=== PATIENT | male | born 1980 | race Caucasian/White ===

== ENCOUNTER 2022-07-07 10:48 | Inpatient (IN) | payer BC ==
[2022-07-07] MEDS ORDERED: Iopamidol-370 76% 500 ML 1 ML ONE (11:18)
[2022-07-07 11:46] LABS: Hemoglobin 14.2 g/dL (14.0-18.0); Mean Corpuscular Hemoglobin 34.6 pg (27.0-31.0); Platelet Count 20 10x3/uL (130-400); RBC Distribution Width 15.6 % (11.5-14.5); Red Blood Cell (RBC) Count 4.09 mill/uL (4.70-6.10); White Blood Cell (WBC) Count 4.7 10x3/uL (4.8-10.8)
[2022-07-07 11:49] LABS: INR-International Normal Ratio 1.4; Prothrombin Time 17.4 sec (12.0-14.7)
[2022-07-07 11:50] LABS: PTT 40.9 sec (22.9-36.1)
[2022-07-07 12:03] LABS: ALT (SGPT) 93 U/L (8-55); AST (SGOT) 318 U/L (5-34); Albumin 2.9 g/dL (3.5-5.0); Alkaline Phosphatase 190 U/L (40-110); Anion Gap 17 mmol/L (10-20); BUN (Urea Nitrogen) 8 mg/dL (8.9-20.6); Calc. Creatinine Clearance 0 mL/min (70-130); Calcium 8.5 mg/dL (7.8-10.44); Carbon Dioxide 28 mmol/L (22-29); Chloride 82 mmol/L (98-107); Estimated GFR 121; Globulin 2.6 g/dL (2.4-3.5); Glucose 104 mg/dL (70-105); Lipase 92 U/L (8-78); Potassium 2.7 mmol/L (3.5-5.1); Protein, Total 5.5 g/dL (6.0-8.3); Sodium 124 mmol/L (136-145)
[2022-07-07 12:06] LABS: Band 13 % (5-11); Eosinophils 1 % (0-10); Lymphocytes 2 % (21-51); MDiff Complete? YES; Monocytes 13 % (0-10); Neutrophil 70 % (42-75); Platelet Morphology Comment Appears Decreased; Polychromasia SLIGHT = 2-3 cells (100X) (0-2/hpf); Reactive Lymphocytes 1 % (0-10); Reflex for Review?? YES; Target Cells MODERATE= 6-15 cells (100X) (0-1/hpf)
[2022-07-07 12:12] LABS: Bilirubin, Total 30.5 mg/dL (0.2-1.2)
[2022-07-07] MEDS ORDERED: Potassium Chloride 20 MEQ TAB ONE (14:38)
[2022-07-07] MEDS ORDERED: Acetaminophen 325 MG TAB PO PRN (16:34)
[2022-07-07] MEDS ORDERED: Potassium Chloride 20 MEQ TAB PO SCH (16:45)
[2022-07-07] MEDS ORDERED: NS 0.9% w/ 20 MEQ KCL 1,000 ML/1,000 ML BAG IV SCH (16:45)
[2022-07-07] MEDS ORDERED: Magnesium 2 GM/50 ML(in water) 2 GM in Premix Bag 1 BAG IVPB SCH (16:45)
[2022-07-07] MEDS ORDERED: Magnesium 2 GM/50 ML BAG (IN WATER) ONE (19:48)
[2022-07-07 23:44] LABS: SARS-CoV-2 NAA Rapid Test Not Detected (NotDetected)
[2022-07-08 06:43] LABS: Bilirubin, Total 27.3 mg/dL (0.2-1.2)
[2022-07-08 06:45] LABS: ALT (SGPT) 82 U/L (8-55); AST (SGOT) 272 U/L (5-34); Albumin 2.9 g/dL (3.5-5.0); Alkaline Phosphatase 171 U/L (40-110); Anion Gap 14 mmol/L (10-20); BUN (Urea Nitrogen) 7 mg/dL (8.9-20.6); Calc. Creatinine Clearance 0 mL/min (70-130); Calcium 8.3 mg/dL (7.8-10.44); Carbon Dioxide 29 mmol/L (22-29); Chloride 86 mmol/L (98-107); Estimated GFR 128; Globulin 2.7 g/dL (2.4-3.5); Glucose 90 mg/dL (70-105); Magnesium 2.3 mg/dL (1.6-2.6); Potassium 3.2 mmol/L (3.5-5.1); Protein, Total 5.6 g/dL (6.0-8.3); Sodium 126 mmol/L (136-145)
[2022-07-08 06:52] LABS: HBCM Index 0.07 S/CO (0-0.79); HBSAg Index 0.24 S/CO (0-0.99); Hep A IgM AB Non-Reactive (NonReactive); Hep A IgM S/CO 0.14 S/CO (0-0.79); Hep B Surf Ag Non-Reactive S/CO (NonReactive); Hep C IgG Ab Non-Reactive (NonReactive); Hep C Index 0.05 S/CO (0-0.79); Hepatitis B Core IgM Abs Non-Reactive (NonReactive)
[2022-07-08 06:54] LABS: Anisocytosis SLIGHT = 6-15 cells (100X) (0-5/hpf); Band 4 % (5-11); Eosinophils 3 % (0-10); Lymphocytes 4 % (21-51); MDiff Complete? YES; Mean Corpuscular HGB CONC 34.8 g/dL (32.0-36.0); Mean Corpuscular Hemoglobin 34.4 pg (27.0-31.0); Mean Platelet Volume 11.9 fL (7.4-10.4); Monocytes 12 % (0-10); Neutrophil 77 % (42-75); Nucleated RBC 1 % (0); Platelet Count 26 10x3/uL (130-400); Platelet Morphology Comment Appears Decreased; Polychromasia SLIGHT = 2-3 cells (100X) (0-2/hpf); RBC Distribution Width 15.8 % (11.5-14.5); Red Blood Cell (RBC) Count 4.06 mill/uL (4.70-6.10); Stomatocytes SLIGHT = 2-5 cells (100X) (0-1/hpf); White Blood Cell (WBC) Count 3.7 10x3/uL (4.8-10.8)
[2022-07-08] MEDS: Spironolactone 25 MG TAB PO SCH (12:11)
[2022-07-08] MEDS: prednisoLONE 10 MG ODT TAB PO SCH (12:15)
[2022-07-09 07:48] LABS: INR-International Normal Ratio 1.4; Prothrombin Time 17.8 sec (12.0-14.7)
[2022-07-09 07:50] LABS: Mean Corpuscular HGB CONC 33.2 g/dL (32.0-36.0); Mean Corpuscular Hemoglobin 33.3 pg (27.0-31.0); Mean Platelet Volume 10.4 fL (7.4-10.4); Platelet Count 40 10x3/uL (130-400); RBC Distribution Width 16.1 % (11.5-14.5)
[2022-07-09] MEDS: Spironolactone 25 MG TAB PO SCH (08:06)
[2022-07-09 08:07] LABS: Bilirubin, Total 27.8 mg/dL (0.2-1.2)
[2022-07-09 08:13] LABS: Alpha-Fetoprotein,Tumor Marker 2.9 ng/mL (0.89-8.78); Cancer Antigen - CA 125 708.7 U/mL (Less than 35)
[2022-07-09 08:33] LABS: ALT (SGPT) 79 U/L (8-55); AST (SGOT) 224 U/L (5-34); Acetaminophen Less than 10.0 mcg/mL (10.0-30.0); Albumin 2.4 g/dL (3.5-5.0); Alkaline Phosphatase 167 U/L (40-110); Anion Gap 12 mmol/L (10-20); BUN (Urea Nitrogen) 8 mg/dL (8.9-20.6); Calc. Creatinine Clearance 223 mL/min (70-130); Calcium 8.1 mg/dL (7.8-10.44); Carbon Dioxide 29 mmol/L (22-29); Chloride 93 mmol/L (98-107); Estimated GFR 127; Globulin 2.6 g/dL (2.4-3.5); Glucose 112 mg/dL (70-105); Iron 97 ug/dL (65-175); Iron Binding Capacity, Total 118 mcg/dL (261-462); Sodium 131 mmol/L (136-145)
[2022-07-09] MEDS ORDERED: prednisoLONE 10 MG ODT TAB PO SCH ×2 (09:00)
[2022-07-09] MEDS ORDERED: Potassium Chloride 20 MEQ TAB PO SCH (09:15)
[2022-07-09 11:54] LABS: Band 11 % (5-11); Eosinophils 1 % (0-10); Lymphocytes 4 % (21-51); MDiff Complete? YES; Monocytes 6 % (0-10); Myelocyte 1 % (0-0); Neutrophil 72 % (42-75); Nucleated RBC 1 % (0); Platelet Morphology Comment Appears Decreased; Polychromasia MODERATE = 3-4 cells (100X) (0-2/hpf); Reactive Lymphocytes 5 % (0-10); Target Cells SLIGHT = 2-5 cells (100X) (0-1/hpf)
[2022-07-09] MEDS: prednisoLONE 10 MG ODT TAB PO SCH (12:51)
[2022-07-09 13:31] LABS: ANA Symphony (Qualitative) Negative (Negative); ANA Symphony (Quantitative) 0.4 Ratio (< 0.7 Negative); EliA Vaculitis New Method **** NEW METHOD ****; Mitochondrial Ab 1.2 U/mL (<4 Negative)
[2022-07-10 07:29] LABS: ALT (SGPT) 90 U/L (8-55); AST (SGOT) 236 U/L (5-34); Albumin 2.6 g/dL (3.5-5.0); Alkaline Phosphatase 186 U/L (40-110); Anion Gap 12 mmol/L (10-20); BUN (Urea Nitrogen) 10 mg/dL (8.9-20.6); Bilirubin, Total Greater than 25.0 mg/dL (0.2-1.2); Calc. Creatinine Clearance 202 mL/min (70-130); Calcium 8.4 mg/dL (7.8-10.44); Carbon Dioxide 28 mmol/L (22-29); Chloride 98 mmol/L (98-107); Estimated GFR 124; Globulin 2.9 g/dL (2.4-3.5); Glucose 111 mg/dL (70-105); Potassium 3.6 mmol/L (3.5-5.1); Protein, Total 5.5 g/dL (6.0-8.3); Sodium 134 mmol/L (136-145)
[2022-07-10] MEDS: Spironolactone 25 MG TAB PO SCH (09:59)
[2022-07-10] MEDS: prednisoLONE 10 MG ODT TAB PO SCH (12:26)
[2022-07-10] MEDS: chlordiazePOXIDE HCl 5 MG CAP PO SCH ×2 (16:11→20:28)
[2022-07-11 07:00] LABS: INR-International Normal Ratio 1.3; Prothrombin Time 17.2 sec (12.0-14.7)
[2022-07-11 07:23] LABS: ALT (SGPT) 95 U/L (8-55); AST (SGOT) 223 U/L (5-34); Albumin 2.4 g/dL (3.5-5.0); Alkaline Phosphatase 177 U/L (40-110); Anion Gap 12 mmol/L (10-20); BUN (Urea Nitrogen) 9 mg/dL (8.9-20.6); Calc. Creatinine Clearance 212 mL/min (70-130); Calcium 8.2 mg/dL (7.8-10.44); Carbon Dioxide 25 mmol/L (22-29); Chloride 103 mmol/L (98-107); Estimated GFR 125; Globulin 2.7 g/dL (2.4-3.5); Glucose 110 mg/dL (70-105); Potassium 3.8 mmol/L (3.5-5.1); Protein, Total 5.1 g/dL (6.0-8.3); Sodium 136 mmol/L (136-145)
[2022-07-11 07:34] LABS: Bilirubin, Total 28.1 mg/dL (0.2-1.2)
[2022-07-11] MEDS: Ondansetron PF 4 MG/2 ML Vial IVP PRN (08:59)
[2022-07-11] MEDS: HYDROcodone/Acetaminophen 5/325 mg Tablet PO PRN ×4 (08:59→20:55)
[2022-07-11] MEDS: Spironolactone 25 MG TAB PO SCH (09:00)
[2022-07-11] MEDS: prednisoLONE 10 MG ODT TAB PO SCH (10:56)
[2022-07-11] MEDS: chlordiazePOXIDE HCl 5 MG CAP PO SCH ×3 (10:56→20:55)
[2022-07-11] MEDS: Morphine 2 MG/ML VIAL SLOW IVP PRN ×2 (14:50→22:48)
[2022-07-11] MEDS ORDERED: FLU VACC QS2022-23(6MOS UP)/PF 60 MCG/0.5 ML SYRINGE IM ONE (19:00)
[2022-07-12] MEDS: HYDROcodone/Acetaminophen 5/325 mg Tablet PO PRN ×2 (01:50→15:27)
[2022-07-12] MEDS ORDERED: diphenhydrAMINE 25 MG CAP PO SCH (02:15)
[2022-07-12] MEDS: Morphine 2 MG/ML VIAL SLOW IVP PRN ×4 (02:26→20:23)
[2022-07-12 06:57] LABS: Hemoglobin 14.8 g/dL (14.0-18.0); Mean Corpuscular HGB CONC 35.5 g/dL (32.0-36.0); Mean Corpuscular Hemoglobin 37.1 pg (27.0-31.0); Mean Platelet Volume 10.4 fL (7.4-10.4); Platelet Count 86 10x3/uL (130-400); Red Blood Cell (RBC) Count 3.99 mill/uL (4.70-6.10); White Blood Cell (WBC) Count 4.3 10x3/uL (4.8-10.8)
[2022-07-12 07:14] LABS: Anion Gap 12 mmol/L (10-20); BUN (Urea Nitrogen) 9 mg/dL (8.9-20.6); Calc. Creatinine Clearance 227 mL/min (70-130); Calcium 8.2 mg/dL (7.8-10.44); Carbon Dioxide 23 mmol/L (22-29); Chloride 102 mmol/L (98-107); Estimated GFR 128; Glucose 111 mg/dL (70-105); Potassium 3.7 mmol/L (3.5-5.1); Sodium 133 mmol/L (136-145)
[2022-07-12 07:22] LABS: ALT (SGPT) 111 U/L (8-55); AST (SGOT) 229 U/L (5-34); Albumin 2.8 g/dL (3.5-5.0); Alkaline Phosphatase 207 U/L (40-110); Bilirubin, Direct Greater than 10.0 mg/dL (0.1-0.3); Bilirubin, Total Greater than 25.0 mg/dL (0.2-1.2); Protein, Total 5.7 g/dL (6.0-8.3)
[2022-07-12 07:54] LABS: Band 11 % (5-11); Eosinophils 1 % (0-10); Lymphocytes 2 % (21-51); MDiff Complete? YES; Macrocytosis SLIGHT = 6-15 cells (100X) (0-5/hpf); Monocytes 11 % (0-10); Neutrophil 75 % (42-75); Platelet Morphology Comment Appears Decreased; Polychromasia SLIGHT = 2-3 cells (100X) (0-2/hpf); Target Cells SLIGHT = 2-5 cells (100X) (0-1/hpf)
[2022-07-12] MEDS: Spironolactone 25 MG TAB PO SCH (09:01)
[2022-07-12] MEDS: chlordiazePOXIDE HCl 5 MG CAP PO SCH ×3 (09:01→20:33)
[2022-07-12] MEDS: prednisoLONE 10 MG ODT TAB PO SCH (12:09)
[2022-07-13] MEDS: Morphine 2 MG/ML VIAL SLOW IVP PRN ×5 (00:17→20:19)
[2022-07-13] MEDS: HYDROcodone/Acetaminophen 5/325 mg Tablet PO PRN ×2 (02:46→08:25)
[2022-07-13 06:55] LABS: #Lymphocytes 0.5 thou/uL (1.20-3.40); #Monocytes 0.8 thou/uL (0.11-0.59); #Neutrophils 4.2 thou/uL (1.40-6.50); %Eosinophils 0.5 % (0.0-10.0); %Lymphocytes 9.1 % (21.0-51.0); %Monocytes 14.8 % (0.0-10.0); %Neutrophils 75.7 % (42.0-75.0); Hemoglobin 14.5 g/dL (14.0-18.0); Mean Corpuscular HGB CONC 32.5 g/dL (32.0-36.0); Mean Corpuscular Hemoglobin 33.8 pg (27.0-31.0); Platelet Count 106 10x3/uL (130-400); RBC Distribution Width 18.4 % (11.5-14.5); White Blood Cell (WBC) Count 5.5 10x3/uL (4.8-10.8)
[2022-07-13 07:10] LABS: Anion Gap 11 mmol/L (10-20); BUN (Urea Nitrogen) 9 mg/dL (8.9-20.6); Calc. Creatinine Clearance 202 mL/min (70-130); Calcium 8.3 mg/dL (7.8-10.44); Carbon Dioxide 26 mmol/L (22-29); Chloride 101 mmol/L (98-107); Estimated GFR 124; Glucose 111 mg/dL (70-105); Potassium 4.1 mmol/L (3.5-5.1); Sodium 134 mmol/L (136-145)
[2022-07-13 07:22] LABS: Bilirubin, Total 32.4 mg/dL (0.2-1.2)
[2022-07-13 07:38] LABS: ALT (SGPT) 133 U/L (8-55); AST (SGOT) 240 U/L (5-34); Albumin 2.7 g/dL (3.5-5.0); Alkaline Phosphatase 205 U/L (40-110); Bilirubin, Direct Greater than 10.0 mg/dL (0.1-0.3); Protein, Total 5.8 g/dL (6.0-8.3)
[2022-07-13] MEDS: Spironolactone 25 MG TAB PO SCH (08:25)
[2022-07-13] MEDS: chlordiazePOXIDE HCl 5 MG CAP PO SCH ×3 (08:27→20:18)
[2022-07-13] MEDS: prednisoLONE 10 MG ODT TAB PO SCH (12:30)
[2022-07-14] MEDS: Morphine 2 MG/ML VIAL SLOW IVP PRN ×4 (00:41→20:59)
[2022-07-14] MEDS: HYDROcodone/Acetaminophen 5/325 mg Tablet PO PRN ×3 (03:31→23:34)
[2022-07-14 06:44] LABS: INR-International Normal Ratio 1.3; Prothrombin Time 16.8 sec (12.0-14.7)
[2022-07-14 06:48] LABS: Anion Gap 12 mmol/L (10-20); BUN (Urea Nitrogen) 11 mg/dL (8.9-20.6); Calc. Creatinine Clearance 215 mL/min (70-130); Calcium 8.2 mg/dL (7.8-10.44); Carbon Dioxide 25 mmol/L (22-29); Chloride 102 mmol/L (98-107); Estimated GFR 126; Glucose 122 mg/dL (70-105); Potassium 4.2 mmol/L (3.5-5.1); Sodium 135 mmol/L (136-145)
[2022-07-14 06:52] LABS: #Lymphocytes 0.4 thou/uL (1.20-3.40); #Monocytes 0.8 thou/uL (0.11-0.59); #Neutrophils 4.7 thou/uL (1.40-6.50); %Basophils 0.2 % (0.0-1.0); %Eosinophils 0.7 % (0.0-10.0); %Monocytes 13.2 % (0.0-10.0); %Neutrophils 78.8 % (42.0-75.0); Hemoglobin 14.3 g/dL (14.0-18.0); Mean Corpuscular HGB CONC 32.8 g/dL (32.0-36.0); Mean Corpuscular Hemoglobin 34.2 pg (27.0-31.0); Mean Platelet Volume 10.5 fL (7.4-10.4); Platelet Count 102 10x3/uL (130-400); RBC Distribution Width 18.6 % (11.5-14.5); Red Blood Cell (RBC) Count 4.19 mill/uL (4.70-6.10)
[2022-07-14 07:01] LABS: ALT (SGPT) 133 U/L (8-55); AST (SGOT) 215 U/L (5-34); Albumin 2.9 g/dL (3.5-5.0); Alkaline Phosphatase 206 U/L (40-110); Bilirubin, Direct Greater than 10.0 mg/dL (0.1-0.3); Protein, Total 5.7 g/dL (6.0-8.3)
[2022-07-14 07:09] LABS: Bilirubin, Total 29.5 mg/dL (0.2-1.2)
[2022-07-14] MEDS ORDERED: WATER IVPB SCH (09:00)
[2022-07-14] MEDS ORDERED: ACETYLCYSTEINE IVPB SCH (09:00)
[2022-07-14] MEDS ORDERED: DEXTROSE 5% IVPB SCH (09:00)
[2022-07-14] MEDS: chlordiazePOXIDE HCl 5 MG CAP PO SCH ×3 (09:29→20:59)
[2022-07-14] MEDS: Spironolactone 25 MG TAB PO SCH (09:29)
[2022-07-14] MEDS: prednisoLONE 10 MG ODT TAB PO SCH (12:14)
[2022-07-15] MEDS: Morphine 2 MG/ML VIAL SLOW IVP PRN ×4 (01:38→20:09)
[2022-07-15 06:34] LABS: Hemoglobin 14.3 g/dL (14.0-18.0); Mean Corpuscular HGB CONC 31.8 g/dL (32.0-36.0); Mean Corpuscular Hemoglobin 33.4 pg (27.0-31.0); Mean Platelet Volume 11.1 fL (7.4-10.4); Platelet Count 106 10x3/uL (130-400); RBC Distribution Width 18.8 % (11.5-14.5); Red Blood Cell (RBC) Count 4.28 mill/uL (4.70-6.10); White Blood Cell (WBC) Count 5.9 10x3/uL (4.8-10.8)
[2022-07-15 06:42] LABS: Anion Gap 12 mmol/L (10-20); BUN (Urea Nitrogen) 10 mg/dL (8.9-20.6); Calc. Creatinine Clearance 219 mL/min (70-130); Calcium 8.1 mg/dL (7.8-10.44); Carbon Dioxide 25 mmol/L (22-29); Chloride 102 mmol/L (98-107); Estimated GFR 127; Glucose 130 mg/dL (70-105); Potassium 3.7 mmol/L (3.5-5.1); Sodium 135 mmol/L (136-145)
[2022-07-15 06:46] LABS: ALT (SGPT) 140 U/L (8-55); AST (SGOT) 208 U/L (5-34); Albumin 2.6 g/dL (3.5-5.0); Alkaline Phosphatase 223 U/L (40-110); Protein, Total 5.6 g/dL (6.0-8.3)
[2022-07-15 07:00] LABS: Band 11 % (5-11); Lymphocytes 5 % (21-51); MDiff Complete? YES; Macrocytosis SLIGHT = 6-15 cells (100X) (0-5/hpf); Monocytes 12 % (0-10); Neutrophil 72 % (42-75); Platelet Morphology Comment Appears Decreased; Target Cells SLIGHT = 2-5 cells (100X) (0-1/hpf)
[2022-07-15 07:14] LABS: Bilirubin, Direct 15.6 mg/dL (0.1-0.3)
[2022-07-15] MEDS: Spironolactone 25 MG TAB PO SCH (10:07)
[2022-07-15] MEDS: prednisoLONE 10 MG ODT TAB PO SCH (10:07)
[2022-07-15] MEDS: chlordiazePOXIDE HCl 5 MG CAP PO SCH ×3 (10:07→20:18)
[2022-07-15] MEDS: HYDROcodone/Acetaminophen 5/325 mg Tablet PO PRN (10:11)
[2022-07-16 08:37] LABS: Anion Gap 13 mmol/L (10-20); BUN (Urea Nitrogen) 9 mg/dL (8.9-20.6); Calc. Creatinine Clearance 204 mL/min (70-130); Calcium 7.7 mg/dL (7.8-10.44); Carbon Dioxide 24 mmol/L (22-29); Chloride 102 mmol/L (98-107); Estimated GFR 124; Glucose 135 mg/dL (70-105); Potassium 3.6 mmol/L (3.5-5.1); Sodium 135 mmol/L (136-145)
[2022-07-16 08:38] LABS: ALT (SGPT) 128 U/L (8-55); AST (SGOT) 168 U/L (5-34); Albumin 2.4 g/dL (3.5-5.0); Alkaline Phosphatase 163 U/L (40-110); Bilirubin, Total 19.1 mg/dL (0.2-1.2); Protein, Total 4.9 g/dL (6.0-8.3)
[2022-07-16 08:52] LABS: Hemoglobin 13.2 g/dL (14.0-18.0); Mean Corpuscular HGB CONC 33.4 g/dL (32.0-36.0); Mean Platelet Volume 11.2 fL (7.4-10.4); Platelet Count 83 10x3/uL (130-400); RBC Distribution Width 18.5 % (11.5-14.5); Red Blood Cell (RBC) Count 3.76 mill/uL (4.70-6.10); White Blood Cell (WBC) Count 7.4 10x3/uL (4.8-10.8)
[2022-07-16] MEDS: Furosemide 20 MG TAB PO SCH (08:59)
[2022-07-16] MEDS: Spironolactone 25 MG TAB PO SCH (08:59)
[2022-07-16] MEDS: chlordiazePOXIDE HCl 5 MG CAP PO SCH ×3 (08:59→21:46)
[2022-07-16] MEDS: Morphine 2 MG/ML VIAL SLOW IVP PRN (09:06)
[2022-07-16 09:10] LABS: Bilirubin, Direct 8.9 mg/dL (0.1-0.3)
[2022-07-16] MEDS ORDERED: Naproxen 500 MG TAB PO SCH (09:30)
[2022-07-16] MEDS: cefTRIAXone\\ROCEPHIN 1 GM in Sodium Chloride 0.9% 100 ML IVPB SCH (10:13)
[2022-07-16] MEDS: prednisoLONE 10 MG ODT TAB PO SCH (11:27)
[2022-07-16 11:42] LABS: Band 17 % (5-11); Lymphocytes 9 % (21-51); MDiff Complete? YES; Monocytes 9 % (0-10); Neutrophil 62 % (42-75); Platelet Morphology Comment Appears Decreased; Polychromasia SLIGHT = 2-3 cells (100X) (0-2/hpf); Reactive Lymphocytes 2 % (0-10); Target Cells SLIGHT = 2-5 cells (100X) (0-1/hpf)
[2022-07-16] MEDS: HYDROcodone/Acetaminophen 5/325 mg Tablet PO PRN ×2 (15:27→21:46)
[2022-07-17] MEDS: Dicyclomine 10 MG CAP PO PRN ×3 (05:29→21:30)
[2022-07-17] MEDS: cefTRIAXone\\ROCEPHIN 1 GM in Sodium Chloride 0.9% 100 ML IVPB SCH (09:24)
[2022-07-17] MEDS: chlordiazePOXIDE HCl 5 MG CAP PO SCH (09:25)
[2022-07-17] MEDS: Furosemide 20 MG TAB PO SCH (09:26)
[2022-07-17] MEDS: Spironolactone 25 MG TAB PO SCH (09:26)
[2022-07-17 10:28] LABS: ALT (SGPT) 149 U/L (8-55); AST (SGOT) 172 U/L (5-34); Albumin 2.3 g/dL (3.5-5.0); Alkaline Phosphatase 184 U/L (40-110); Anion Gap 12 mmol/L (10-20); BUN (Urea Nitrogen) 11 mg/dL (8.9-20.6); Bilirubin, Total 19.8 mg/dL (0.2-1.2); Calc. Creatinine Clearance 217 mL/min (70-130); Calcium 7.9 mg/dL (7.8-10.44); Carbon Dioxide 25 mmol/L (22-29); Chloride 102 mmol/L (98-107); Estimated GFR 126; Glucose 138 mg/dL (70-105); Potassium 3.3 mmol/L (3.5-5.1); Protein, Total 5.3 g/dL (6.0-8.3); Sodium 136 mmol/L (136-145)
[2022-07-17] MEDS: prednisoLONE 10 MG ODT TAB PO SCH (11:42)
[2022-07-17] MEDS ORDERED: Simethicone Chewable 80 MG TAB PO PRN (19:30)
[2022-07-18 07:40] LABS: ALT (SGPT) 167 U/L (8-55); AST (SGOT) 183 U/L (5-34); Albumin 2.7 g/dL (3.5-5.0); Alkaline Phosphatase 188 U/L (40-110); Anion Gap 13 mmol/L (10-20); BUN (Urea Nitrogen) 9 mg/dL (8.9-20.6); Bilirubin, Total 17.7 mg/dL (0.2-1.2); Calc. Creatinine Clearance 210 mL/min (70-130); Calcium 8.4 mg/dL (7.8-10.44); Carbon Dioxide 26 mmol/L (22-29); Chloride 103 mmol/L (98-107); Estimated GFR 125; Globulin 3.2 g/dL (2.4-3.5); Glucose 98 mg/dL (70-105); Potassium 3.6 mmol/L (3.5-5.1); Protein, Total 5.9 g/dL (6.0-8.3); Sodium 138 mmol/L (136-145)
[2022-07-18] MEDS: Dicyclomine 10 MG CAP PO PRN (09:10)
[2022-07-18] MEDS: Rifaximin 550 MG TAB PO SCH ×2 (09:11→20:13)
[2022-07-18] MEDS: Furosemide 20 MG TAB PO SCH (09:11)
[2022-07-18] MEDS: Spironolactone 25 MG TAB PO SCH (09:11)
[2022-07-18] MEDS: cefTRIAXone\\ROCEPHIN 1 GM in Sodium Chloride 0.9% 100 ML IVPB SCH (09:11)
[2022-07-18] MEDS: Nadolol 40 MG TAB PO SCH (09:13)
[2022-07-18] MEDS: prednisoLONE 10 MG ODT TAB PO SCH (12:25)
[2022-07-18 17:01] VITALS: BMI 29.3
[2022-07-19 06:21] LABS: ALT (SGPT) 170 U/L (8-55); AST (SGOT) 182 U/L (5-34); Albumin 2.3 g/dL (3.5-5.0); Alkaline Phosphatase 210 U/L (40-110); Anion Gap 10 mmol/L (10-20); BUN (Urea Nitrogen) 10 mg/dL (8.9-20.6); Bilirubin, Total 13.9 mg/dL (0.2-1.2); Calc. Creatinine Clearance 233 mL/min (70-130); Calcium 8.1 mg/dL (7.8-10.44); Carbon Dioxide 26 mmol/L (22-29); Chloride 104 mmol/L (98-107); Estimated GFR 129; Glucose 120 mg/dL (70-105); Potassium 3.3 mmol/L (3.5-5.1); Protein, Total 5.3 g/dL (6.0-8.3); Sodium 137 mmol/L (136-145)
[2022-07-19] MEDS: Spironolactone 25 MG TAB PO SCH (08:56)
[2022-07-19] MEDS: Nadolol 40 MG TAB PO SCH (08:56)
[2022-07-19] MEDS: Rifaximin 550 MG TAB PO SCH ×2 (08:56→21:07)
[2022-07-19] MEDS: Furosemide 20 MG TAB PO SCH (08:56)
[2022-07-19] MEDS: cefTRIAXone\\ROCEPHIN 1 GM in Sodium Chloride 0.9% 100 ML IVPB SCH (08:57)
[2022-07-19] MEDS: prednisoLONE 10 MG ODT TAB PO SCH (11:56)
[2022-07-19] MEDS ORDERED: Furosemide 40 MG/4 ML VIAL SLOW IVP SCH (16:00)
[2022-07-19] MEDS ORDERED: Albumin 25% 25 GM/100 ML BOT IVPB SCH (16:15)
[2022-07-19] MEDS ORDERED: Potassium Chloride 20 MEQ TAB PO SCH (16:30)
[2022-07-19] MEDS: Albumin 25% 25 GM/100 ML BOT IVPB SCH ×2 (17:56→23:43)
[2022-07-19] MEDS: Furosemide 20 MG/2 ML VIAL SLOW IVP SCH (21:07)
[2022-07-20] MEDS: Furosemide 20 MG/2 ML VIAL SLOW IVP SCH ×4 (03:18→21:47)
[2022-07-20] MEDS: Albumin 25% 25 GM/100 ML BOT IVPB SCH ×3 (05:15→23:45)
[2022-07-20 06:45] LABS: #Eosinphils 0.1 thou/uL (0.0-0.7); #Lymphocytes 0.7 thou/uL (1.20-3.40); #Monocytes 0.8 thou/uL (0.11-0.59); #Neutrophils 5.1 thou/uL (1.40-6.50); %Basophils 0.6 % (0.0-1.0); %Eosinophils 1.1 % (0.0-10.0); %Lymphocytes 10.8 % (21.0-51.0); %Monocytes 11.8 % (0.0-10.0); %Neutrophils 75.8 % (42.0-75.0); Hemoglobin 12.4 g/dL (14.0-18.0); Mean Corpuscular HGB CONC 33.8 g/dL (32.0-36.0); Mean Corpuscular Hemoglobin 36.2 pg (27.0-31.0); Mean Platelet Volume 10.7 fL (7.4-10.4); Platelet Count 92 10x3/uL (130-400); RBC Distribution Width 18.1 % (11.5-14.5); Red Blood Cell (RBC) Count 3.42 mill/uL (4.70-6.10); White Blood Cell (WBC) Count 6.7 10x3/uL (4.8-10.8)
[2022-07-20 07:00] LABS: ALT (SGPT) 160 U/L (8-55); AST (SGOT) 167 U/L (5-34); Albumin 3.2 g/dL (3.5-5.0); Alkaline Phosphatase 156 U/L (40-110); Anion Gap 13 mmol/L (10-20); BUN (Urea Nitrogen) 10 mg/dL (8.9-20.6); Bilirubin, Total 13.1 mg/dL (0.2-1.2); Calc. Creatinine Clearance 225 mL/min (70-130); Calcium 8.2 mg/dL (7.8-10.44); Carbon Dioxide 26 mmol/L (22-29); Chloride 101 mmol/L (98-107); Estimated GFR 127; Globulin 2.5 g/dL (2.4-3.5); Glucose 102 mg/dL (70-105); Protein, Total 5.7 g/dL (6.0-8.3); Sodium 137 mmol/L (136-145)
[2022-07-20] MEDS ORDERED: Potassium Chloride 20 MEQ TAB PO SCH (08:00)
[2022-07-20] MEDS: Rifaximin 550 MG TAB PO SCH ×2 (08:39→21:47)
[2022-07-20] MEDS: Spironolactone 25 MG TAB PO SCH (08:40)
[2022-07-20] MEDS: cefTRIAXone\\ROCEPHIN 1 GM in Sodium Chloride 0.9% 100 ML IVPB SCH (08:40)
[2022-07-20] MEDS: Nadolol 40 MG TAB PO SCH (08:40)
[2022-07-20] MEDS: prednisoLONE 10 MG ODT TAB PO SCH (11:20)
[2022-07-20] MEDS: Potassium Chloride 20 MEQ TAB PO SCH (21:47)
[2022-07-21] MEDS: Furosemide 20 MG/2 ML VIAL SLOW IVP SCH ×4 (04:58→21:00)
[2022-07-21] MEDS: Albumin 25% 25 GM/100 ML BOT IVPB SCH ×3 (05:21→17:14)
[2022-07-21 07:14] LABS: ALT (SGPT) 159 U/L (8-55); AST (SGOT) 170 U/L (5-34); Albumin 3.2 g/dL (3.5-5.0); Alkaline Phosphatase 154 U/L (40-110); Anion Gap 15 mmol/L (10-20); BUN (Urea Nitrogen) 11 mg/dL (8.9-20.6); Bilirubin, Total 12.4 mg/dL (0.2-1.2); Calc. Creatinine Clearance 210 mL/min (70-130); Carbon Dioxide 25 mmol/L (22-29); Chloride 103 mmol/L (98-107); Estimated GFR 125; Globulin 2.7 g/dL (2.4-3.5); Glucose 112 mg/dL (70-105); Potassium 3.7 mmol/L (3.5-5.1); Protein, Total 5.9 g/dL (6.0-8.3); Sodium 139 mmol/L (136-145)
[2022-07-21] MEDS: Nadolol 40 MG TAB PO SCH (09:06)
[2022-07-21] MEDS: Potassium Chloride 20 MEQ TAB PO SCH ×2 (09:06→21:00)
[2022-07-21] MEDS: Spironolactone 25 MG TAB PO SCH (09:06)
[2022-07-21] MEDS: Rifaximin 550 MG TAB PO SCH ×2 (09:06→21:00)
[2022-07-21] MEDS: cefTRIAXone\\ROCEPHIN 1 GM in Sodium Chloride 0.9% 100 ML IVPB SCH (10:13)
[2022-07-21] MEDS: prednisoLONE 10 MG ODT TAB PO SCH (11:13)
[2022-07-22] MEDS: Furosemide 20 MG/2 ML VIAL SLOW IVP SCH ×4 (04:02→21:07)
[2022-07-22] MEDS: Nadolol 40 MG TAB PO SCH (06:01)
[2022-07-22] MEDS: Ondansetron PF 4 MG/2 ML Vial IVP PRN (06:02)
[2022-07-22] MEDS ORDERED: PROPOFOL 200 MG/20 ML VIAL ONE (11:11)
[2022-07-22] MEDS: Rifaximin 550 MG TAB PO SCH ×2 (12:11→21:07)
[2022-07-22] MEDS: Spironolactone 25 MG TAB PO SCH (12:11)
[2022-07-22] MEDS: Potassium Chloride 20 MEQ TAB PO SCH ×2 (12:11→21:07)
[2022-07-22] MEDS: cefTRIAXone\\ROCEPHIN 1 GM in Sodium Chloride 0.9% 100 ML IVPB SCH (12:12)
[2022-07-22] MEDS: prednisoLONE 10 MG ODT TAB PO SCH (12:12)
[2022-07-23] MEDS: Furosemide 20 MG/2 ML VIAL SLOW IVP SCH ×3 (04:42→16:06)
[2022-07-23] MEDS: Rifaximin 550 MG TAB PO SCH (08:43)
[2022-07-23] MEDS: Spironolactone 25 MG TAB PO SCH (08:43)
[2022-07-23] MEDS: Furosemide 20 MG TAB PO SCH (08:43)
[2022-07-23] MEDS: Potassium Chloride 20 MEQ TAB PO SCH (08:43)
[2022-07-23] MEDS: cefTRIAXone\\ROCEPHIN 1 GM in Sodium Chloride 0.9% 100 ML IVPB SCH (08:43)
[2022-07-23] MEDS: Nadolol 40 MG TAB PO SCH (08:43)
[2022-07-23] MEDS: prednisoLONE 10 MG ODT TAB PO SCH (11:47)
[2022-07-23 15:32] VITALS: BP 121/72; TEMP 98.3
== END 2022-07-23 16:00 | disposition home or self-care (01) | DRG 432 ==
LOC: ERS 10:48 → EEVIPCON 10:48 → ERHOLD 15:48 → T4-A 07-08 09:18
PROVIDERS: ADMIT Hospitalist; ATTEND Family Medicine
PROC: 0DJ08ZZ Inspection of Upper Intestinal Tract, Via Natural or Artificial Opening Endoscopic (ICD-10-PCS; principal; 2022-07-11)
PROC: 30233J1 Transfusion of Nonautologous Serum Albumin into Peripheral Vein, Percutaneous Approach (ICD-10-PCS; 2022-07-19)
DX: K70.31 Alcoholic cirrhosis of liver with ascites (principal); K72.00 Acute and subacute hepatic failure without coma; D68.9 Coagulation defect, unspecified; E87.1 Hypo-osmolality and hyponatremia; I85.00 Esophageal varices without bleeding; K76.6 Portal hypertension; G93.40 Encephalopathy, unspecified; K70.11 Alcoholic hepatitis with ascites; F41.9 Anxiety disorder, unspecified; F32.A Depression, unspecified; F17.210 Nicotine dependence, cigarettes, uncomplicated; D69.6 Thrombocytopenia, unspecified; E87.6 Hypokalemia; F10.10 Alcohol abuse, uncomplicated; Z20.822 Contact with and (suspected) exposure to COVID-19; K80.20 Calculus of gallbladder without cholecystitis without obstruction; K76.82 Hepatic encephalopathy; K31.89 Other diseases of stomach and duodenum; K29.80 Duodenitis without bleeding; K31.9 Disease of stomach and duodenum, unspecified; Z88.8 Allergy status to other drugs, medicaments and biological substances
CPT/HCPCS: 36415; 74177; 76705; 78227; 80048; 80053; 80074; 80076; 80143; 82103; 82105; 82390; 82728; 83516; 83540; 83550; 83690; 83735; 84443; 85025; 85060; 85610; 85730; 86015; 86038; 86225; 86301; 86304; 87040; 87811; 80307; A9537; J0132; J0696; J1940; J2272; J2405; J2704; J3475; J3490; J7050; J7070; P9047; Q9967; U0002

== ENCOUNTER 2024-05-13 03:05 | Emergency (ER) | payer BC ==
[2024-05-13] MEDS ORDERED: Ondansetron PF 4 MG/2 ML Vial ONE (05:34)
== END 2024-05-13 06:28 | disposition home or self-care (01) ==
LOC: ERS 03:05
DX: L03.115 Cellulitis of right lower limb (principal); A05.9 Bacterial foodborne intoxication, unspecified; F17.290 Nicotine dependence, other tobacco product, uncomplicated; Z79.899 Other long term (current) drug therapy
CPT/HCPCS: 96374; J2405

== ENCOUNTER 2025-04-30 13:44 | Inpatient (IN) | payer BC ==
[2025-04-30] MEDS ORDERED: Ondansetron PF 4 MG/2 ML Vial ONE (14:00)
[2025-04-30 14:51] LABS: #Basophils Less than 0.03 10x3/uL (0.0-0.2); #Eosinophils 0.05 10x3/uL (0.0-0.7); #Monocytes 0.36 10x3/uL (0.11-0.59); #Neutrophils 1.58 10x3/uL (1.40-6.50); %Basophils 0.9 % (0.0-1.0); %Eosinophils 2.2 % (0.0-10.0); %Lymphocytes 10.2 % (21.0-51.0); %Monocytes 16.0 % (0.0-10.0); %Neutrophils 70.3 % (42.0-75.0); Hematocrit 40.8 % (42.0-52.0); Hemoglobin 13.9 g/dL (14.0-18.0); Mean Corpuscular Hemoglobin 31.5 pg (27.0-31.0); Mean Corpuscular Volume 92.5 fL (78.0-98.0); Platelet Count 47 10x3/uL (130-400); Red Blood Cell (RBC) Count 4.41 mill/uL (4.70-6.10); White Blood Cell (WBC) Count 2.25 10x3/uL (4.8-10.8)
[2025-04-30] MEDS ORDERED: Electrolyte Replacement Protocol 1 EACH FS SCH (15:00)
[2025-04-30 15:02] LABS: ALT (SGPT) 153 U/L (Less than 45); AST (SGOT) 331 U/L (11-34); Albumin 3.9 g/dL (3.1-4.5); Alkaline Phosphatase 141 U/L (40-110); Anion Gap 15 mmol/L (10-20); BUN (Urea Nitrogen) Less than 4 mg/dL (8.9-20.6); Bilirubin, Total 4.0 mg/dL (0.3-1.2); Calc. Creatinine Clearance 0 mL/min (70-130); Calcium 8.8 mg/dL (7.8-10.44); Carbon Dioxide 27 mmol/L (22-29); Chloride 101 mmol/L (98-107); Globulin 2.4 g/dL (2.4-3.5); Glucose 81 mg/dL (70-105); Lipase 31 U/L (8-78); Potassium 3.4 mmol/L (3.5-5.1); Sodium 140 mmol/L (136-145)
[2025-04-30] MEDS ORDERED: PHOS-NAK 1 PKT PACK PO PRN (15:15)
[2025-04-30] MEDS ORDERED: Magnesium 2 GM/50 ML(in water) 2 GM in Premix 1 BAG IVPB PRN (15:15)
[2025-04-30] MEDS ORDERED: Potassium Chloride 20 MEQ in Premix 1 BAG IVPB PRN (15:15)
[2025-04-30 15:42] VITALS: BMI 30.7
[2025-04-30 18:01] LABS: Lithium Less than 0.101 mmol/L (1.0-1.2)
[2025-05-01 04:22] LABS: Hematocrit 38.7 % (42.0-52.0); Hemoglobin 12.9 g/dL (14.0-18.0); Mean Corpuscular Hemoglobin 31.2 pg (27.0-31.0); Mean Corpuscular Volume 93.7 fL (78.0-98.0); Platelet Count 45 10x3/uL (130-400); Red Blood Cell (RBC) Count 4.13 mill/uL (4.70-6.10); White Blood Cell (WBC) Count 1.60 10x3/uL (4.8-10.8)
[2025-05-01 04:26] LABS: Anion Gap 13 mmol/L (10-20); BUN (Urea Nitrogen) 6 mg/dL (8.9-20.6); Calc. Creatinine Clearance 216 mL/min (70-130); Calcium 9.0 mg/dL (7.8-10.44); Carbon Dioxide 27 mmol/L (22-29); Chloride 106 mmol/L (98-107); Glucose 102 mg/dL (70-105); Potassium 3.5 mmol/L (3.5-5.1); Sodium 142 mmol/L (136-145)
[2025-05-01 04:55] LABS: Platelet Adequacy Comment Platelets Decreased; RBC Morphology Within Normal Limits; Smudge Cells 1.0 %
[2025-05-01] MEDS ORDERED: Enoxaparin 40 MG (0.4 mL) SYRINGE SC SCH (09:00)
[2025-05-01] MEDS: Folic Acid 1 MG TAB PO SCH (09:19)
[2025-05-01] MEDS: Multivit, Therapeutic 1 TAB PO SCH (09:19)
[2025-05-01 10:40] LABS: Potassium 4.0 mmol/L (3.5-5.1)
[2025-05-02 08:53] VITALS: BP 145/84; TEMP 98.1
[2025-05-02 10:07] LABS: #Basophils Less than 0.03 10x3/uL (0.0-0.2); #Eosinophils 0.05 10x3/uL (0.0-0.7); #Monocytes 0.52 10x3/uL (0.11-0.59); #Neutrophils 3.17 10x3/uL (1.40-6.50); %Basophils 0.5 % (0.0-1.0); %Eosinophils 1.2 % (0.0-10.0); %Lymphocytes 6.2 % (21.0-51.0); %Monocytes 12.9 % (0.0-10.0); %Neutrophils 79.0 % (42.0-75.0); Hematocrit 41.2 % (42.0-52.0); Hemoglobin 14.3 g/dL (14.0-18.0); Mean Corpuscular Hemoglobin 31.6 pg (27.0-31.0); Mean Corpuscular Volume 91.2 fL (78.0-98.0); Platelet Count 53 10x3/uL (130-400); Red Blood Cell (RBC) Count 4.52 mill/uL (4.70-6.10); White Blood Cell (WBC) Count 4.02 10x3/uL (4.8-10.8)
[2025-05-02 10:21] LABS: Anion Gap 15 mmol/L (10-20); BUN (Urea Nitrogen) 6 mg/dL (8.9-20.6); Calc. Creatinine Clearance 234 mL/min (70-130); Calcium 9.6 mg/dL (7.8-10.44); Carbon Dioxide 23 mmol/L (22-29); Chloride 103 mmol/L (98-107); Glucose 137 mg/dL (70-105); Magnesium 1.5 mg/dL (1.6-2.6); Potassium 3.7 mmol/L (3.5-5.1); Sodium 137 mmol/L (136-145)
[2025-05-03] MEDS ORDERED: Thiamine 100 MG TAB PO SCH (15:00)
== END 2025-05-02 11:00 | disposition left against medical advice (07) | DRG 894 ==
LOC: ERS 13:44 → ERHOLD 14:41 → PCU 18:05
PROVIDERS: ADMIT Internal Medicine; ATTEND Internal Medicine
PROC: HZ2ZZZZ Detoxification Services for Substance Abuse Treatment (ICD-10-PCS; principal; 2025-04-30)
DX: F10.139 Alcohol abuse with withdrawal, unspecified (principal); D61.818 Other pancytopenia; K70.30 Alcoholic cirrhosis of liver without ascites; D72.819 Decreased white blood cell count, unspecified; F39 Unspecified mood [affective] disorder
CPT/HCPCS: 36415; 71045; 80048; 80178; 82140; 83690; 83735; 85025; 93005; 96374; J2405; J3411; Q0162